=== PATIENT | female | born 1990 | race Caucasian/White ===

== ENCOUNTER 2016-08-06 21:31 | Emergency (ER) | payer MEDICAID, OTHER ==
[~2016-08-06] VITALS: Ht 157.5 cm; Wt 117.0 kg
[~2016-08-06 21:31] MED LIST: PROT40TA PO
[2016-08-06 21:34] VITALS: BP 148/91; PULSE 99; RESP 16; TEMP 98.8; O2SAT 100
[2016-08-06] MEDS ORDERED: SODIUM CHLORIDE 0.9% FLUSH 10 ML FLUSH IV FLUSH PRN (22:15)
--- NOTE | 2016-08-06 22:17 | PD ---
HPI Chief Complaint: Abdominal Pain Time Seen by Provider: 22:14 Travel History International Travel<30 days: No Contact w/Intl Traveler<30days: No Traveled to known affect area: No History of Present Illness HPI 25 year old female presents to the emergency department for evaluation of abdominal cramping and nausea. She states she has had abdominal cramping for one week, but started with worsening cramping at 6 PM this afternoon. She also reports associated nausea. No vomiting. Patient states she had a negative test approximately 2 months, but is concerned that she could be because her abdominal cramping feels like "labor pains". She reports no chronic medical problems and takes no prescribed medications. She denies any abnormal vaginal discharge or risk of STDs reporting being with her only for the last 10 years. She has no other complaints at this time. PFSH Past Medical History Asthma: Yes Cancer: No Diminished Hearing: No Psychiatric: Yes Respiratory: Yes (ASTHMA) Seizures: Yes (FEBRILE AT AGE 1.5 YRS) Thyroid Disease: No Ulcer: No : 3 Para: 2 Miscarriage: 1 Past Surgical History Tonsillectomy: Yes (ADENECTOMY) Other Surgery: Yes (TONS2001) Social History Alcohol Use: Yes (occ) Tobacco Use: Yes (03/19 PPD) Substance Use: No Allergies-Medications (Allergen,Severity, Reaction): Coded Allergies: Bee Sting (Verified Allergy, Severe, TRIGGERS ASTHMA, SWELLING, 08/06/16) Reported Meds & Prescriptions Reported Meds & Active Scripts Active Review of Systems Except as stated in HPI: all other systems reviewed are Neg Physical Exam Narrative GENERAL: Well-nourished, well-developed female patient, ambulatory. Afebrile. SKIN: Focused skin assessment warm/dry. HEAD: Normocephalic. Atraumatic. EYES: No scleral icterus. No injection or drainage. NECK: Supple, trachea midline. No JVD or lymphadenopathy. CARDIOVASCULAR: Regular rate and rhythm without murmurs, gallops, or rubs. RESPIRATORY: Breath sounds equal bilaterally. No accessory muscle use. Lungs sounds are clear to auscultation. GASTROINTESTINAL: Abdomen soft, non-tender, nondistended, obese. No abdominal or pelvic pain to palpation. MUSCULOSKELETAL: No cyanosis, or edema. BACK: Nontender without obvious deformity. No CVA tenderness. Data Data Last Documented VS Vital Signs Date Time Temp Pulse Resp B/P Pulse Ox O2 Delivery O2 Flow Rate FiO2 08/06/16 22:39 20 08/06/16 22:38 100 08/06/16 21:34 98.8 99 148/91 Room Air Orders Complete Blood Count With Diff (08/06/16 22:13) Comprehensive Metabolic Panel (08/06/16 22:13) Lipase (08/06/16 22:13) Urinalysis - C+S If Indicated (08/06/16 22:13) Iv Access Insert/Monitor (08/06/16 22:13) Ecg Monitoring (08/06/16 22:13) Oximetry (08/06/16 22:13) Sodium Chloride 0.9% Flush (Ns Flush) (08/06/16 22:15) Ed Urine Pregnancytest Poc (08/06/16 22:13) Thyroid Stimulating Hormone (08/06/16 22:13) Labs Laboratory Tests Test 08/06/16 08/06/16 22:10 22:20 Urine Color YELLOW Urine Turbidity CLEAR Urine pH 8.0 Urine Specific [place] 1.010 Urine Protein NEG mg/dL Urine Glucose (UA) NEG mg/dL Urine Ketones NEG mg/dL Urine Occult Blood NEG Urine Nitrite NEG Urine Bilirubin NEG Urine Urobilinogen LESS THAN 2.0 MG/DL Urine Leukocyte Esterase SMALL Urine RBC 1 /hpf Urine WBC LESS THAN 1 /hpf Urine Squamous Epithelial 3 /hpf Cells Urine Bacteria RARE /hpf Microscopic Urinalysis Comment CULT NOT INDICATED White Blood Count 10.6 TH/MM3 Red Blood Count 4.22 MIL/MM3 Hemoglobin 13.1 GM/DL Hematocrit 39.1 % Mean Corpuscular Volume 92.5 FL Mean Corpuscular Hemoglobin 31.0 PG Mean Corpuscular Hemoglobin 33.5 % Concent Red Cell Distribution Width 13.7 % Platelet Count 240 TH/MM3 Mean Platelet Volume 7.3 FL Neutrophils (%) (Auto) 58.4 % Lymphocytes (%) (Auto) 31.9 % Monocytes (%) (Auto) 7.4 % Eosinophils (%) (Auto) 1.9 % Basophils (%) (Auto) 0.4 % Neutrophils # (Auto) 6.2 TH/MM3 Lymphocytes # (Auto) 3.4 TH/MM3 Monocytes # (Auto) 0.8 TH/MM3 Eosinophils # (Auto) 0.2 TH/MM3 Basophils # (Auto) 0.0 TH/MM3 CBC Comment DIFF FINAL Differential Comment MDM Medical Decision Making Medical Screen Exam Complete: Yes Emergency Medical Condition: Yes Medical Record Reviewed: Yes Differential Diagnosis UTI versus hypothyroidism versus electrolyte abnormality versus Narrative Course 25-year-old female presents to the emergency department for evaluation of abdominal cramping and nausea. UA, urine test are ordered and pending. CBC, CMP, lipase, TSH are ordered and pending. UA shows small leukocyte esterase. UPT is negative. CBC is unremarkable. CMP , Lipase, and TSH are pending. Dr. Hernández will resume care and disposition of patient. Teodora Elias August 06, 2016 22:17
[2016-08-06 22:38] VITALS: O2SAT 100
[2016-08-06 22:41] LABS: AUTOMATED NEUTROPHIL # 6.2 TH/MM3 (1.8-7.7); BASOPHIL % 0.4 % (0.0-2.0); EOSINOPHIL # 0.2 TH/MM3 (0-0.4); EOSINOPHIL % 1.9 % (0.0-4.0); HEMATOCRIT 39.1 % (35.0-46.0); HEMO FLAGS DIFF FINAL; LYMPH % 31.9 % (9.0-44.0); LYMPHOCYTE # 3.4 TH/MM3 (1.0-4.8); MEAN CELL VOLUME 92.5 FL (80.0-100.0); MEAN CORPUSCULAR HGB CONC 33.5 % (32.0-36.0); MONO % 7.4 % (0.0-8.0); NEUT % 58.4 % (16.0-70.0); PLATELET COUNT 240 TH/MM3 (150-450); RED BLOOD COUNT 4.22 MIL/MM3 (4.00-5.30); RED CELL DISTRIBUTION WIDTH 13.7 % (11.6-17.2); WHITE BLOOD COUNT 10.6 TH/MM3 (4.0-11.0)
[2016-08-06 22:42] LABS: BACTERIA, URINE RARE /hpf; BLOOD, URINE NEG (NEG); COMMENT (UR) CULT NOT INDICATED; CULTURE IF INDICATED CULT NOT INDICATED; GLUCOSE,URINE NEG (NEG); KETONE, URINE NEG (NEG); NITRITE,URINE NEG (NEG); SQUAMOUS EPITHELIAL CELL URINE 3 /hpf (0-5); URINE COLOR YELLOW (YELLW/STRAW)
--- NOTE | 2016-08-06 23:05 | PD ---
Data Data Last Documented VS Vital Signs Date Time Temp Pulse Resp B/P Pulse Ox O2 Delivery O2 Flow Rate FiO2 08/06/16 22:39 20 08/06/16 22:38 100 08/06/16 21:34 98.8 99 148/91 Room Air Orders Complete Blood Count With Diff (08/06/16 22:13) Comprehensive Metabolic Panel (08/06/16 22:13) Lipase (08/06/16 22:13) Urinalysis - C+S If Indicated (08/06/16 22:13) Iv Access Insert/Monitor (08/06/16 22:13) Ecg Monitoring (08/06/16 22:13) Oximetry (08/06/16 22:13) Sodium Chloride 0.9% Flush (Ns Flush) (08/06/16 22:15) Ed Urine Pregnancytest Poc (08/06/16 22:13) Thyroid Stimulating Hormone (08/06/16 22:13) Labs Laboratory Tests Test 08/06/16 08/06/16 22:10 22:20 Urine Color YELLOW Urine Turbidity CLEAR Urine pH 8.0 Urine Specific [employer] 1.010 Urine Protein NEG mg/dL Urine Glucose (UA) NEG mg/dL Urine Ketones NEG mg/dL Urine Occult Blood NEG Urine Nitrite NEG Urine Bilirubin NEG Urine Urobilinogen LESS THAN 2.0 MG/DL Urine Leukocyte Esterase SMALL Urine RBC 1 /hpf Urine WBC LESS THAN 1 /hpf Urine Squamous Epithelial 3 /hpf Cells Urine Bacteria RARE /hpf Microscopic Urinalysis Comment CULT NOT INDICATED White Blood Count 10.6 TH/MM3 Red Blood Count 4.22 MIL/MM3 Hemoglobin 13.1 GM/DL Hematocrit 39.1 % Mean Corpuscular Volume 92.5 FL Mean Corpuscular Hemoglobin 31.0 PG Mean Corpuscular Hemoglobin 33.5 % Concent Red Cell Distribution Width 13.7 % Platelet Count 240 TH/MM3 Mean Platelet Volume 7.3 FL Neutrophils (%) (Auto) 58.4 % Lymphocytes (%) (Auto) 31.9 % Monocytes (%) (Auto) 7.4 % Eosinophils (%) (Auto) 1.9 % Basophils (%) (Auto) 0.4 % Neutrophils # (Auto) 6.2 TH/MM3 Lymphocytes # (Auto) 3.4 TH/MM3 Monocytes # (Auto) 0.8 TH/MM3 Eosinophils # (Auto) 0.2 TH/MM3 Basophils # (Auto) 0.0 TH/MM3 CBC Comment DIFF FINAL Differential Comment Sodium Level 139 MEQ/L Potassium Level 3.8 MEQ/L Chloride Level 106 MEQ/L Carbon Dioxide Level 25.0 MEQ/L Anion Gap 8 MEQ/L Blood Urea Nitrogen 7 MG/DL Creatinine 0.73 MG/DL Estimat Glomerular Filtration 96 ML/MIN Rate Random Glucose 90 MG/DL Calcium Level 8.3 MG/DL Total Bilirubin 0.3 MG/DL Aspartate Amino Transf 38 U/L (AST/SGOT) Alanine Aminotransferase 65 U/L (ALT/SGPT) Alkaline Phosphatase 67 U/L Total Protein 6.5 GM/DL Albumin 3.3 GM/DL Lipase 123 U/L Thyroid Stimulating Hormone 8.100 uIU/ML 3rd Gen [facility] Medical Record Reviewed: Yes Supervised Visit with RIYA: No Narrative Course During the course of the patients emergency department visit, the patients history, examination, and differential diagnosis were reviewed with the patient. The patient had IV access obtained and blood work sent for analysis. The patient was initially seen by Teodora. Please see her complete history and physical. The patient is a 25-year-old female who presents to [facility] emergency Department with weight gain, lower extremity edema, nausea, lower abdominal cramping. She reported a concern that she might be . A bedside test was negative. A workup ensued including laboratory studies. The patient's abdominal examination was benign, therefore imaging was not recommended at this time. The patients laboratory studies were reviewed and remarkable for a CBC that is within normal limits, CMP is remarkable for an AST of 38, ALT 65, albumin 3.3, TSH 8.1, lipase 123, urinalysis unremarkable. The patient's edema could be related to hypothyroid disorder. The patient according the record has no primary care physician. She will be given the name of the outpatient primary care doctor for follow-up, Dr. Flor. She was also given a lab slip to obtain an outpatient TSH and free T3-T4. The patient is resting comfortably and feels better, is alert and in no distress. The patients results and examination findings were discussed with the patient. The repeat examination is unremarkable and benign. The history, exam, diagnostic testing, and current condition do not suggest any significant pathology to warrant further testing, continued ED treatment, admission, or surgical evaluation at this point. The vital signs have been stable. The patient does not have uncontrollable pain, intractable vomiting, or other significant symptoms. The patient's condition is stable and appropriate for discharge. The patient will pursue further outpatient evaluation with a primary care physician or other designated or consulting physician as indicated in the discharge instructions. The patient expressed understanding and was agreeable with this plan. Diagnosis Primary Impression: Weight gain Additional Impressions: Elevated TSH Abdominal cramping Referrals: Homar Soto MD 2 days Patient Instructions: General Instructions, Hypothyroidism (ED) Additional Instruction: The patient is given an outpatient lab slip for additional laboratory testing regarding her elevated TSH. Med/Other Pt SpecificInfo: No Meds Exist/No RX given Disposition: 01 DISCHARGE HOME Condition: Stable Beth Hernández MD August 06, 2016 23:04
[2016-08-06 23:27] LABS: ANION GAP 8 MEQ/L (5-15); AST (GOT) 38 U/L (15-37); BLOOD UREA NITROGEN 7 MG/DL (7-18); CHLORIDE 106 MEQ/L (98-107); GLOMERULAR FILTRATION RATE 96 ML/MIN (>89); POTASSIUM 3.8 MEQ/L (3.5-5.1); SODIUM (NA) 139 MEQ/L (136-145)
[2016-08-06 23:38] LABS: ALKALINE PHOSPHATASE 67 U/L (45-117); ALT (GPT) 65 U/L (10-53); TOTAL BILIRUBIN ADULT 0.3 MG/DL (0.2-1.0)
== END 2016-08-07 01:18 | disposition home or self-care (01) ==
LOC: NEPC 21:31
DX: R63.5 Abnormal weight gain (principal); R79.89 Other specified abnormal findings of blood chemistry; R10.9 Unspecified abdominal pain; R11.0 Nausea; R60.0 Localized edema; F17.200 Nicotine dependence, unspecified, uncomplicated; Z87.09 Personal history of other diseases of the respiratory system; Z86.59 Personal history of other mental and behavioral disorders
CPT/HCPCS: 80053; 81001; 83690; 84443; 84703; 85025; 99283

== ENCOUNTER 2017-04-04 11:11 | Emergency (ER) | payer MEDICAID, OTHER ==
[~2017-04-04] VITALS: Ht 160 cm; Wt 100.0 kg
[2017-04-04 11:12] VITALS: BP 155/84; PULSE 75; RESP 16; TEMP 99; O2SAT 100
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
[2017-04-04] MEDS ORDERED: BACT800T5 PO (11:49)
[2017-04-04] MEDS ORDERED: IBUP1TAB7 PO (11:49)
== END 2017-04-04 12:26 | disposition home or self-care (01) ==
LOC: NEPK 11:11
DX: N61.0 Mastitis without abscess (principal); B95.61 Methicillin susceptible Staphylococcus aureus infection as the cause of diseases classified elsewhere; F17.210 Nicotine dependence, cigarettes, uncomplicated
CPT/HCPCS: 86403; 87070; 87186; 87205; 99283